=== PATIENT | female | born 1990 | race American Indian/Alaskan Native ===

== ENCOUNTER 2017-10-27 10:01 | Inpatient (IN) | payer OTHER ==
--- NOTE | 2017-10-27 17:00 | History and Physical Report ---
History of Present Illness Date of examination: 10/27/17 Date of admission: 10/27/17 16:22 Chief complaint: incompotent cervix at 25 weeks History of present illness: This is a 26 Yo at 25 weeks was seen [facility] care. Upon eval it was noted that her cervix experienced coning and her cervix noted 1.3cm . 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 denies: smoking, alcohol abuse, prescription drug abuse - Obstetrical History Expected Date of Delivery: 02/17/18 Actual Gestation: 23 Week(s) 6 Day(s) : 2 Para: 1 Hx # Term Pregnancies: 1 Number of Pregnancies: 0 Spontaneous Abortions: 0 Induced : 0 Number of Living Children: 1 Medications and Allergies Allergies Allergy/AdvReac Type Severity Reaction Status Date / Time No Known Allergies Allergy Unverified 05/19/14 09:44 Home Medications Medication Instructions Recorded Confirmed Last Taken Type Cyclobenzaprine [Flexeril 10mg] 10 mg PO TID PRN #14 tablet 05/19/14 Unknown Rx HYDROcodone/APAP 5-325 [[place] 1 each PO Q6HR PRN #14 tablet 05/19/14 Unknown Rx 5/325 mg] Ibuprofen [Motrin 800 MG tab] 800 mg PO TID #30 tablet 05/19/14 Unknown Rx methylPREDNISolone [Medrol Dose 4 mg PO DAILY #1 pack 05/19/14 Unknown Rx Zachariah] Review of Systems All systems: negative - Physical Exam Breasts: Positive: normal Cardiovascular: Regular rate, Normal S1 Lungs: Positive: Clear to auscultation, Normal air movement Abdomen: Positive: normal appearance, soft, normal bowel sounds. Negative: tenderness Genitourinary (Female): Positive: normal external genitalia, normal perenium Vulva: both: atrophy Vagina: Positive: atrophic mucosa Extremities: Positive: normal Deep Tendon Reflex Grade: Normal +2 - Obstetrical FHR: auscultation normal Cervical Dilatation: 0.5 Results All other labs normal. Assessment and Plan A/P Incmopetent cervix admission lagbs continuous monitoring peds consult to discuss premmaturity BMZ x 2 AMFM consult today when and if d/c vaginal progesterone ordered 200 mg QHS
[2017-10-27] MEDS ORDERED: COLACE PO PRN (18:28)
[2017-10-27] MEDS: CELESTONE SOLUSPAN IM SCH (18:48)
[2017-10-27] MEDS: LACTATED RINGERS 1,000 ML IV SCH (18:49)
[2017-10-27 19:29] LABS: Basophils % (Auto) 0.2 % (0.0-1.8); Eosinophils % (Auto) 0.6 % (0.0-4.3); Hematocrit 34.4 % (30.3-42.9); Hemoglobin 11.2 gm/dl (10.1-14.3); Mean Corpuscular HGB Conc 33 % (30-34); Mean Corpuscular Hemoglobin 31 pg (28-32); Mean Corpuscular Volume 96 fl (79-97); Platelet Count 275 K/mm3 (140-440); Red Blood Count 3.57 M/mm3 (3.65-5.03); Red Cell Distribution Width 13.9 % (13.2-15.2); White Blood Count 11.3 K/mm3 (4.5-11.0)
--- NOTE | 2017-10-27 20:49 | Consultation ---
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 (lgsil) Family/Genetic History: hypertension - Obstetrical History : 3 Medications and Allergies Allergies Allergy/AdvReac Type Severity Reaction Status Date / Time No Known Allergies Allergy Unverified 05/19/14 09:44 Home Medications Medication Instructions Recorded Confirmed Last Taken Type Cyclobenzaprine [Flexeril 10mg] 10 mg PO TID PRN #14 tablet 05/19/14 Unknown Rx HYDROcodone/APAP 5-325 [[place] 1 each PO Q6HR PRN #14 tablet 05/19/14 Unknown Rx 5/325 mg] RX: Ibuprofen [Motrin 800 MG tab] 800 mg PO TID #30 tablet 05/19/14 Unknown Rx methylPREDNISolone [Medrol Dose 4 mg PO DAILY #1 pack 05/19/14 Unknown Rx Zachariah] Active Meds: Active Medications Acetaminophen (Tylenol) 650 mg PO Q4H PRN PRN Reason: Pain MILD(1-3)/Fever >100.5/MCKOY Betamethasone Acet/Betameth SodPhos (Celestone Soluspan) 12 mg IM Q24H AILYN Stop: 10/28/17 19:31 Last Admin: 10/27/17 18:48 Dose: 12 mg Docusate Sodium (Colace) 100 mg PO Q12H PRN PRN Reason: Constipation Lactated Ringer's (Lactated Ringers) 1,000 mls @ 125 mls/hr IV DIRECT AILYN Last Admin: 10/27/17 18:49 Dose: 125 mls/hr Multivitamins/Iron/Calcium ( Vitamin) 1 each PO QDAY AILYN - Vital Signs Vital signs: Vital Signs Temp Resp 98.2 F 18 10/27/17 19:20 10/27/17 19:20 Temp Pulse Resp BP Pulse Ox 98.2 F 79 18 108/58 10/27/17 19:20 10/27/17 19:53 10/27/17 19:20 10/27/17 19:53 Results Result Diagrams: 10/27/17 18:25 Abnormal lab results 10/27/17 Range/Units 18:25 WBC 11.3 H (4.5-11.0) K/mm3 RBC 3.57 L (3.65-5.03) M/mm3 Seg Neutrophils % 77.1 H (40.0-70.0) % Seg Neutrophils # 8.7 H (1.8-7.7) K/mm3 All other labs normal. Assessment and Plan ANAHI Pt seen Full consult on chart A: 1. IUP at 25 3/7 weeks 2. Cervical shortening Recommendations: 1. complete course of steroids 2. Monitor for labor or distress 3. Vaginal progesterone 200mg per vagina QHS was called into the [facility] [address] [facility] [address] [phone] by ANAHI RN earlier today. 4. Consider outpatient expectant management after completion of her steroids if the maternal / status is reassuring with no evidence of labor The US findings and increased risk of delivery and its associated morbidity and mortality was discussed with the patient. She was advised that vaginal progesterone is recommended as a management option to reduce the risk of in asymptomatic women with a ren gestation without a prior . We discussed that therapy is advised until 36 weeks gestation. She is scheduled for a repeat cervical length in one week. The role of steroids was discussed as well All questions were answered and she stated understanding of the plan of care.
[2017-10-27] MEDS: TYLENOL PO PRN (22:09)
[2017-10-28] MEDS: LACTATED RINGERS 1,000 ML IV SCH ×2 (03:50→12:59)
[2017-10-28] MEDS ORDERED: PRENATAL VITAMIN PO SCH (10:00)
[2017-10-28] MEDS: TYLENOL PO PRN ×2 (12:31→15:42)
--- NOTE | 2017-10-28 13:04 | Progress Note ---
Assessment and Plan A: 1. IUP at 25 4/7 weeks 2. Cervical shortening/ Incompotent cervix Plan 1. complete course of steroids next dose due at 6p 2. Continue monitor for labor or distress- so far no concerns 3. Vaginal progesterone 200mg per vagina QHS was called into the [facility] [address] [place] [id number] [phone] by ANAHI RN earlier today. 4. IF all stable at 6p will d/c with f/u next week STANISLAW stated: The US findings and increased risk of delivery and its associated morbidity and mortality was discussed with the patient. She was advised that vaginal progesterone is recommended as a management option to reduce the risk of in asymptomatic women with a ren gestation without a prior . We discussed that therapy is advised until 36 weeks gestation. She is scheduled for a repeat cervical length in one week. The role of steroids was discussed as well Had some leg pain and DVT neg for DVT Subjective - Subjective Date of service: 10/28/17 Principal diagnosis: Incompotent cervix Interval history: This is a 26 Yo at 25 weeks was seen [facility] to care. Upon eval it was noted that her cervix experienced coning and her cervix noted 1.3cm . She was sent to L and d for direct admit Patient reports: movement normal, no new complaints, no loss of fluid, no vaginal bleeding, no contractions Objective - Vital Signs Vital Signs: Vital Signs - 12hr 10/28/17 10/28/17 10/28/17 08:26 08:29 12:31 Temperature 97.9 F Pulse Rate 70 70 Respiratory 20 20 Rate Blood Pressure 107/60 Blood Pressure 107/60 [Left] - Exam Breasts: normal Cardiovascular: Regular rate, Normal S1 Lungs: Clear to auscultation, Normal air movement Abdomen: Present: normal appearance, soft, normal bowel sounds. Absent: distention, tenderness, guarding Vulva: both: normal Uterus: Present: normal, firm, fundal height above umbilicus. Absent: bogginess , tenderness FHR: auscultation normal Cervical Dilatation: 0.5 Extremities: normal Deep Tendon Reflex Grade: Normal +2 - Labs Labs: Abnormal Labs 10/27/17 18:25 WBC 11.3 H RBC 3.57 L Seg Neutrophils % 77.1 H Seg Neutrophils # 8.7 H Laboratory Results - last 24 hr 10/27/17 10/27/17 18:25 18:25 WBC 11.3 H RBC 3.57 L Hgb 11.2 Hct 34.4 MCV 96 MCH 31 MCHC 33 RDW 13.9 Plt Count 275 Lymph % (Auto) 16.5 [place] % (Auto) 5.6 Eos % (Auto) 0.6 Baso % (Auto) 0.2 Lymph # 1.9 [place] # 0.6 Eos # 0.1 Baso # 0.0 Seg Neutrophils % 77.1 H Seg Neutrophils # 8.7 H Blood Type O POSITIVE Antibody Screen Negative
--- NOTE | 2017-10-28 14:40 | Discharge Summary ---
Providers - Providers Date of Admission: 10/28/17 10:01 Date of discharge: 10/28/17 Attending physician: PER SCHROEDER 10/27/17 Consult to Case Management [CONS] Routine Services Needed at Discharge: Other Notified:: CHARGE NURSE IN NICU Phone number called:: [phone] Was contact made?: Yes If yes, spoke with:: ABIOLA Torres called:: 08:20 Comment:: NICU consult 25 weeks incompetent Cerivx Additional Physician Instructions: see above 10/27/17 18:28 Consult to Physician [CONS] Routine Consulting Provider: LEE HUGGINS Reason For Exam: [address] consult to:: [facility] Notified:: ANSWERING SERVICE Phone number called:: [phone] Was contact made?: Yes If yes, spoke with:: ALONDRA Time called:: 00:00 10/28/17 14:15 Consult to Physician [CONS] Routine Consulting Provider: Reason For Exam: [address] consult to:: pediatrics Phone number called:: [phone] Was contact made?: Yes Primary care physician: PER SCHROEDER Hospitalization Reason for admission: observation (incompotent cervix ), other (o) Discharge diagnosis: other (incompotent cervix 25 weeks s/p BMZ x2 ) Hospital course: patient admitted for 23 hr observation. She was dx with incompotent cervix and given BMZ x2. She was seen by Peds and MFM. Discharged to home to f/u next week Condition at discharge: Good Disposition: DC-01 TO HOME OR SELFCARE Plan - Provider Discharge Summary Additional instructions: [] Smoking cessation referral if applicable(refer to patient education folder for contact #) [] Refer to [facility] Booklet Call your doctor immediately for: * Fever > 100.5 * Heavy vaginal bleeding ( >1 pad per hour) * Severe persistent headache * Shortness of breath * Reddened, hot, painful area to leg or breast * Drainage or odor from incision. * Keep incision clean and dry at all times and follow doctor's instructions regarding bathing/showering - Follow up plan Follow up: PER SCHROEDER MD [Primary Care Provider] - 7 Days
--- NOTE | 2017-10-28 15:04 | Consultation ---
History of Present Illness Consult date: 10/28/17 Requesting physician: LEE HUGGINS Reason for consult: prematurity History of present illness: Incompetent cervix with high risk for delivery at 25 weeks gestation [place] Documentation - information: Height 5 ft 6 in Medications and Allergies Allergies Allergy/AdvReac Type Severity Reaction Status Date / Time No Known Allergies Allergy Unverified 05/19/14 09:44 Home Medications Medication Instructions Recorded Confirmed Last Taken Type No Known Home Medications [No 10/28/17 10/28/17 Unknown History Reported Home Medications] Active Meds: Active Medications Acetaminophen (Tylenol) 650 mg PO Q4H PRN PRN Reason: Pain MILD(1-3)/Fever >100.5/MCKOY Last Admin: 10/28/17 12:31 Dose: 650 mg Betamethasone Acet/Betameth SodPhos (Celestone Soluspan) 12 mg IM Q24H AILYN Stop: 10/28/17 19:31 Last Admin: 10/27/17 18:48 Dose: 12 mg Docusate Sodium (Colace) 100 mg PO Q12H PRN PRN Reason: Constipation Lactated Ringer's (Lactated Ringers) 1,000 mls @ 125 mls/hr IV DIRECT AILYN Last Admin: 10/28/17 12:59 Dose: 125 mls/hr Multivitamins/Iron/Calcium ( Vitamin) 1 each PO QDAY AILYN Last Admin: 10/28/17 10:34 Dose: 1 each Exam Vital Signs Temp Resp 98.2 F 18 10/27/17 19:20 10/27/17 19:20 Temp Pulse Resp BP Pulse Ox 97.9 F 70 20 107/60 10/28/17 08:26 10/28/17 08:29 10/28/17 12:31 10/28/17 08:29 Results - Laboratory Findings 10/27/17 18:25 Abnormal lab results 10/27/17 Range/Units 18:25 WBC 11.3 H (4.5-11.0) K/mm3 RBC 3.57 L (3.65-5.03) M/mm3 Seg Neutrophils % 77.1 H (40.0-70.0) % Seg Neutrophils # 8.7 H (1.8-7.7) K/mm3 Assessment and Plan Survival at 25 weeks is approx 80% depending on weight, and survival without significant co-morbity is 50 -60%. I met with mother and spoke with the OB team requesting the consult. Mother understands the need for NICU admission, intubation/non-invasive ventilation, UVC, UAC & PICC line if baby is born at 25 weeks gestation. We discussed the risks of IVH, ROP, BPD and infections. Mother asked appropriate questions which I answered to the best of my ability and encouraged her to plan to provide breast milk for her baby. Agree with steroids for lung maturity Please call NICU with questions
[2017-10-28 15:27] VITALS: BP 113/58
[2017-10-28] MEDS: CELESTONE SOLUSPAN IM SCH (18:22)
--- NOTE | 2017-10-31 07:40 | Vascular Lab Report ---
Left Lower Extremity Venous Duplex Study: Reason for Exam: Pain of the left lower extremity. Comments on the Right: A limited duplex study was done of the proximal veins of the right lower extremity. All veins visualized are freely compressible without evidence of internal echogenicity. Flow is spontaneous and phasic throughout. No evidence of acute or chronic thrombus is seen in any of the vessels visualized. Comments on the Left: All veins visualized are freely compressible without evidence of internal echogenicity. Flow is spontaneous and phasic throughout. No evidence of acute or chronic thrombus is seen in any of the vessels visualized. Impression: No evidence of acute or chronic deep venous thrombosis in the left lower extremity.
== END 2017-10-28 19:22 | disposition home or self-care (01) | DRG 781 ==
LOC: LD 10:01 → OBSVTOIN 10-28 10:01
PROVIDERS: ADMIT Obstetrics & Gynecology; ATTEND Obstetrics & Gynecology
DX: O34.32 Maternal care for cervical incompetence, second trimester (principal); O99.352 Diseases of the nervous system complicating pregnancy, second trimester; G43.909 Migraine, unspecified, not intractable, without status migrainosus; O26.872 Cervical shortening, second trimester; Z82.49 Family history of ischemic heart disease and other diseases of the circulatory system; Z3A.23 23 weeks gestation of pregnancy; Z79.899 Other long term (current) drug therapy
CPT/HCPCS: 36415; 85025; 86592; 86850; 86900; 86901; G0378; G0379; J0702; J7120

== ENCOUNTER 2017-11-04 19:16 | Outpatient (CLI) | payer OTHER ==
[2017-11-04 19:30] VITALS: BP 116/68
[2017-11-04] MEDS ORDERED: TYLENOL ONE (20:34)
[2017-11-04] MEDS ORDERED: TYLENOL PO ONE (21:29)
== END 2017-11-04 20:35 | disposition home or self-care (01) ==
LOC: TRG 19:16
PROVIDERS: ATTEND Obstetrics & Gynecology
DX: O36.8120 Decreased fetal movements, second trimester, not applicable or unspecified (principal); O99.332 Smoking (tobacco) complicating pregnancy, second trimester; O26.892 Other specified pregnancy related conditions, second trimester; R51 Headache; Z3A.26 26 weeks gestation of pregnancy
CPT/HCPCS: 59025

== ENCOUNTER 2018-01-20 03:04 | Outpatient (CLI) | payer MEDICAID, OTHER ==
[2018-01-20 03:16] VITALS: BP 135/67
[2018-01-20] MEDS ORDERED: VISTARIL PO ONE (04:33)
== END 2018-01-20 04:45 | disposition home or self-care (01) ==
LOC: TRG 03:04
PROVIDERS: ATTEND Obstetrics & Gynecology
DX: O47.1 False labor at or after 37 completed weeks of gestation (principal); Z87.891 Personal history of nicotine dependence; Z3A.37 37 weeks gestation of pregnancy
CPT/HCPCS: Q0177

== ENCOUNTER 2018-01-21 03:52 | Inpatient (IN) | payer MEDICAID ==
[2018-01-21] MEDS ORDERED: BRETHINE IVP PRN (04:33)
[2018-01-21] MEDS ORDERED: MINERAL OIL PO PRN (04:33)
[2018-01-21] MEDS ORDERED: ePHEDrine SULFATE IV PRN (04:33)
[2018-01-21] MEDS ORDERED: STADOL IV PRN (04:33)
[2018-01-21] MEDS ORDERED: XYLOCAINE 2% INFILTRATI ONE (04:33)
[2018-01-21] MEDS ORDERED: BRETHINE SUB-Q PRN (04:33)
[2018-01-21] MEDS ORDERED: LACTATED RINGERS 1,000 ML IV SCH (05:00)
[2018-01-21 05:47] LABS: Hematocrit 32.1 % (30.3-42.9); Mean Corpuscular HGB Conc 34 % (30-34); Mean Corpuscular Hemoglobin 31 pg (28-32); Mean Corpuscular Volume 90 fl (79-97); Platelet Count 214 K/mm3 (140-440); Red Blood Count 3.56 M/mm3 (3.65-5.03); Red Cell Distribution Width 13.1 % (13.2-15.2)
--- NOTE | 2018-01-21 07:11 | History and Physical Report ---
History of Present Illness Date of examination: 01/21/18 Date of admission: 01/21/18 04:48 Chief complaint: contractions History of present illness: 27y/o @ 37+6 weeks presents in active labor with advanced cervical dilation. Her course is complicated by late presentation @ 24 weeks. The patient has a history of incompetent cervix and was treated during the with progesterone suppositories. She had exposure to Trichomonas during the with a negative TEMITOPE. GBS is negative Past History Past Medical History: no pertinent history - Obstetrical History Expected Date of Delivery: 02/05/18 Actual Gestation: 37 Week(s) 6 Day(s) : 3 Para: 1 Hx # Term Pregnancies: 1 Number of Pregnancies: 0 Spontaneous Abortions: 1 Induced : 0 Number of Living Children: 1 Medications and Allergies Allergies Allergy/AdvReac Type Severity Reaction Status Date / Time No Known Allergies Allergy Unverified 05/19/14 09:44 Home Medications Medication Instructions Recorded Confirmed Last Taken Type Progesterone, Micronized 100 mg VG QHS 11/04/17 11/04/17 1 Day Ago History [Endometrin] ~11/03/17 Active Meds: Active Medications Butorphanol Tartrate (Stadol) 2 mg IV Q2H PRN PRN Reason: Pain , Severe (7-10) Last Admin: 01/21/18 05:49 Dose: 2 mg Ephedrine Sulfate (Ephedrine Sulfate) 10 mg IV Q2M PRN PRN Reason: Hypotension Lactated Ringer's (Lactated Ringers) 1,000 mls @ 125 mls/hr IV DIRECT AILYN Oxytocin/Sodium Chloride (Pitocin/Ns 20 Unit/1000ml Drip) 20 units in 1,000 mls @ 125 mls/hr IV DIRECT AILYN Mineral Oil (Mineral Oil) 30 ml PO QHS PRN PRN Reason: Constipation Terbutaline Sulfate (Brethine) 0.25 mg SUB-Q ONCE PRN PRN Reason: Hyperstimulation/Hypertonicity Terbutaline Sulfate (Brethine) 0.25 mg IVP ONCE PRN PRN Reason: Hyperstimulation/Hypertonicity Review of Systems All systems: negative Genitourinary: contractions, no leakage of fluid - Vital Signs Vital signs: Vital Signs Temp Resp 98.9 F 18 01/21/18 03:59 01/21/18 03:59 Temp Pulse Resp BP Pulse Ox 98.9 F 18 01/21/18 03:59 01/21/18 05:49 - Physical Exam Breasts: Positive: deferred Cardiovascular: Regular rate Lungs: Positive: Clear to auscultation Abdomen: Positive: normal appearance Results Result Diagrams: 01/21/18 04:33 Abnormal lab results 01/21/18 Range/Units 04:33 RBC 3.56 L (3.65-5.03) M/mm3 RDW 13.1 L (13.2-15.2) % All other labs normal. Assessment and Plan - Patient Problems (1) Active labor Current Visit: Yes Status: Acute Plan to address problem: admit to L&D
[2018-01-21] MEDS ORDERED: NARCAN 2 MG/2 ML IV PRN (08:05)
--- NOTE | 2018-01-21 08:05 | Anesthesia Consultation ---
Anesthesia Consult and Med Hx Date of service: 01/21/18 - Airway Anesthetic Teeth Evaluation: Good ROM Head & Neck: Adequate Mental/Hyoid Distance: Adequate Intubation Access Assessment: Probably Good - Pre-Operative Health Status ASA Pre-Surgery Classification: ASA2, Emergency Proposed Anesthetic Plan: Epidural, Spinal - Pulmonary Hx Asthma: No - Cardiovascular System Hx Hypertension: No - Central Nervous System Hx Seizures: No Hx Psychiatric Problems: No - Endocrine Hx Renal Disease: No Hx Hypothyroidism: No Hx Hyperthyroidism: No - Hematic Hx Anemia: No Hx Sickle Cell Disease: No - Other Systems Hx Alcohol Use: No
[2018-01-21] MEDS ORDERED: XYLOCAINE MPF 2% ONE (08:53)
[2018-01-21] MEDS ORDERED: fentaNYL-BUPIV 2 MCG/ML-0.125% 200 MCG/100 ML BAG EPIDURAL SCH (09:00)
[2018-01-21] MEDS ORDERED: NACL 0.9% 1000 ML 1,000 ML ONE (09:23)
[2018-01-21] MEDS: PITOCin/NS 20 UNIT/1000ML DRIP 20 UNITS/1,000 ML BAG IV SCH ×2 (09:31→11:00)
--- NOTE | 2018-01-21 09:50 | Procedure Note ---
OB Delivery Note - Delivery Date of Delivery: 01/21/18 Surgeon: NEYMAR PINO Estimated blood loss: 200cc - Vaginal Delivery presentation: vertex Delivery position: OA Intrapartum events: none Delivery augmentation: rupture of membranes Delivery monitor: external FHT Route of delivery: Delivery placenta: spontaneous Delivery cord: 3 umbilical vessels Episiotomy: none Delivery laceration: none Anesthesia: epidural Delivery comments: Patient progressed to C/C/+1 and pushed to deliver a liveborn male with apgars of 9/9. After delivery of the head, the shoulders delivered easily. The cord was clamped and cut and infant placed on the warmer. The placenta delivered spontaneously intact with a 3VC. No lacerations. Weight 6lbs 15oz. EBL 200ml - A at 1 minute: 9 at 5 minutes: 9 Gender: Male (weight 6lbs 15oz)
[2018-01-21] MEDS ORDERED: PHENERGAN PO PRN (09:51)
[2018-01-21] MEDS ORDERED: PHENERGAN PR PRN (09:51)
[2018-01-21] MEDS ORDERED: TYLENOL PO PRN (09:51)
[2018-01-21] MEDS ORDERED: LANSINOH TP PRN (09:51)
[2018-01-21] MEDS ORDERED: TUCKS PAD TP PRN (09:51)
[2018-01-21] MEDS ORDERED: ZOFRAN IV PRN (09:51)
[2018-01-21] MEDS ORDERED: BENADRYL PO PRN (10:00)
[2018-01-21] MEDS ORDERED: SODIUM CHLORIDE FLUSH SYRINGE 10 ML IV NR (10:00)
[2018-01-21] MEDS ORDERED: DULCOLAX PR PRN (10:00)
[2018-01-21] MEDS: MOTRIN PO SCH ×3 (10:59→21:16)
[2018-01-21 12:45] LABS: Hemoglobin 11.7 gm/dl (10.1-14.3); Mean Corpuscular HGB Conc 33 % (30-34); Mean Corpuscular Hemoglobin 30 pg (28-32); Mean Corpuscular Volume 92 fl (79-97); Platelet Count 221 K/mm3 (140-440); Red Blood Count 3.91 M/mm3 (3.65-5.03); Red Cell Distribution Width 13.4 % (13.2-15.2)
[2018-01-21 13:02] LABS: Alanine Aminotransferase 11 units/L (7-56); Uric Acid 4.1 mg/dL (3.5-7.6)
[2018-01-21] MEDS: NORCO 5/325 PO PRN (15:51)
[2018-01-21 21:57] LABS: Hematocrit 29.2 % (30.3-42.9); Hemoglobin 9.8 gm/dl (10.1-14.3)
[2018-01-21] MEDS ORDERED: MILK OF MAGNESIA PO PRN (22:00)
[2018-01-22] MEDS: NORCO 5/325 PO PRN
[2018-01-22] MEDS: MOTRIN PO SCH ×3 (04:32→15:34)
[2018-01-22 10:01] VITALS: BP 127/69
--- NOTE | 2018-01-22 12:54 | Progress Note ---
Assessment and Plan - Patient Problems (1) Active labor Current Visit: Yes Status: Acute Plan to address problem: Patient doing well Discharge home Subjective - Subjective Date of service: 01/22/18 Interval history: The patient is without any significant complaints today. She reports her pain is well-controlled. Lochia is decreasing. Patient reports: appetite normal, voiding normally, pain well controlled [place]: doing well Objective - Vital Signs Latest vital signs: Vital Signs Temp Pulse Resp BP 01/22/18 10:00 98.2 F 75 20 127/69 01/22/18 05:32 18 01/22/18 04:32 18 01/22/18 00:50 97.6 F 74 18 123/69 01/22/18 00:00 18 01/21/18 21:16 20 01/21/18 21:10 97.9 F 75 18 111/51 Intake and Output 01/21/18 01/22/18 01/22/18 22:59 06:59 14:59 Intake Total 240 240 360 Output Total 400 300 Balance -160 -60 360 Intake: Oral 240 360 Intake, Free Water 240 Output: Urine 400 300 Void 400 300 Other: Total, Intake Amount 240 360 Total, Output Amount 400 300 # Voids Void 1 1 1 - Exam Uterus: Present: normal, firm - Labs Labs: Abnormal lab results 01/21/18 01/21/18 Range/Units 12:27 21:42 Hgb 9.8 L (10.1-14.3) gm/dl Hct 29.2 L D (30.3-42.9) % Creatinine 0.5 L (0.7-1.2) mg/dL Lactate Dehydrogenase 284 H (91-180) units/L
--- NOTE | 2018-01-22 12:55 | Discharge Summary ---
Providers - Providers Date of Admission: 01/21/18 04:48 Date of discharge: 01/22/18 Attending physician: LEE HUGGINS MD Primary care physician: LEE HUGGINS MD Hospitalization Reason for admission: active labor Delivery: Other procedures: none complications: none Discharge diagnosis: IUP at term delivered [employer] baby: male Hospital course: The patient was in active labor at the time of admission. She had a successful vaginal delivery. Her course was unremarkable. Condition at discharge: Good Disposition: DC-01 TO HOME OR SELFCARE - Discharge Diagnoses (1) Active labor Status: Acute Plan - Discharge Medications Prescriptions: HYDROcodone/APAP 5-325 [[place] 5/325] 1 each PO Q6HR PRN #30 tablet PRN Reason: Pain Ibuprofen [Motrin] 800 mg PO Q8HR PRN #60 tablet PRN Reason: Pain - Provider Discharge Summary Activity: no sex for 6 weeks, no heavy lifting 4 weeks, no strenuous exercise Diet: routine Instructions: routine Additional instructions: [] Smoking cessation referral if applicable(refer to patient education folder for contact #) [] Refer to [facility] Booklet Call your doctor immediately for: * Fever > 100.5 * Heavy vaginal bleeding ( >1 pad per hour) * Severe persistent headache * Shortness of breath * Reddened, hot, painful area to leg or breast * Scheduled visit in 4 weeks - Follow up plan
== END 2018-01-22 16:45 | disposition home or self-care (01) | DRG 775 ==
LOC: TRG 03:52 → LD 04:48 → OB 11:58
PROVIDERS: ADMIT Obstetrics & Gynecology; ATTEND Obstetrics & Gynecology
PROC: 10E0XZZ Delivery of Products of Conception, External Approach (ICD-10-PCS; principal; 2018-01-21)
PROC: 3E0R3BZ Introduction of Anesthetic Agent into Spinal Canal, Percutaneous Approach (ICD-10-PCS; 2018-01-21)
PROC: 00HU33Z Insertion of Infusion Device into Spinal Canal, Percutaneous Approach (ICD-10-PCS; 2018-01-21)
DX: O80 Encounter for full-term uncomplicated delivery (principal); Z3A.37 37 weeks gestation of pregnancy; Z37.0 Single live birth
CPT/HCPCS: 36415; 82565; 83615; 84450; 84460; 84550; 85014; 85018; 85027; 86592; 86850; 86900; 86901; J0595; J2590; J7030; J7120

== ENCOUNTER 2021-02-23 18:33 | Emergency (ER) | payer SELFPAY ==
[2021-02-23] MEDS ORDERED: ACETAMINOPHEN 500 MG TAB PO ONE (22:42)
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
[2021-02-24 01:06] VITALS: BP 106/54
== END 2021-02-24 01:22 | disposition home or self-care (01) ==
LOC: ED 18:33
DX: O20.0 Threatened abortion (principal); Z3A.12 12 weeks gestation of pregnancy; Z79.899 Other long term (current) drug therapy; Z87.891 Personal history of nicotine dependence
CPT/HCPCS: 76801

== ENCOUNTER 2022-04-07 06:40 | Emergency (ER) | payer MEDICAID, OTHER ==
[2022-04-07 07:44] LABS: Bilirubin,Urine NEG (Negative); Blood,Urine NEG (Negative); Color,Urine Yellow (Yellow); Protein,Urine <15 mg/dL mg/dL (Negative)
[2022-04-07 07:53] LABS: Amphetamine Screen,Urine Negative; Benzodiazepines Screen,Urine Negative; Cocaine Screen,Urine Negative; Methadone Screen,Urine Negative; Opiate Screen,Urine Negative
[2022-04-07] MEDS ORDERED: LACTATED RINGERS 1,000 ML IV ONE (08:00)
[2022-04-07 08:04] LABS: Cannabinoid Screen,Urine Positive
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
[2022-04-07 15:16] VITALS: BP 121/78
== END 2022-04-07 15:15 | disposition home or self-care (01) ==
LOC: TRG 06:40 → ED 06:40 → APU 06:56 → TRG 06:56 → APU 08:04 → EDSTATUS 08:22 → ED 15:15
DX: O71.9 Obstetric trauma, unspecified (principal); Z79.899 Other long term (current) drug therapy; O26.892 Other specified pregnancy related conditions, second trimester; Y08.89XA Assault by other specified means, initial encounter; Y93.89 Activity, other specified; Y92.89 Other specified places as the place of occurrence of the external cause; Y99.8 Other external cause status; Z3A.22 22 weeks gestation of pregnancy
CPT/HCPCS: 70450; 80307; 81001; 99284